=== PATIENT | male | born 1985 | race Caucasian/White ===

== ENCOUNTER 2017-04-03 22:52 | Emergency (ER) | payer OTHER ==
[2017-04-03] MEDS ORDERED: SILVER SULFADIAZINE 1 % 25 GM TUBE TOP ONE ×2 (23:02→23:06)
[2017-04-03] MEDS ORDERED: HYDROCOD/APAP 10/325 (ER DISP) # 3 tablets PO ONE (23:05)
[2017-04-03] MEDS ORDERED: KETOROLAC TROMETHAMINE INJ 30 MG/ML VIAL IM ONE (23:05)
[2017-04-03] MEDS ORDERED: HYDROmorphone HCL INJ 2 MG/ML VIAL IM ONE (23:05)
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
[2017-04-03 23:13] VITALS: BP 117/52; TEMP 97.8; O2SAT 98
== END 2017-04-03 23:31 | disposition home or self-care (01) ==
LOC: ER 22:52
DX: T23.262A Burn of second degree of back of left hand, initial encounter (principal); T23.261A Burn of second degree of back of right hand, initial encounter; I49.9 Cardiac arrhythmia, unspecified; Z87.891 Personal history of nicotine dependence; X08.8XXA Exposure to other specified smoke, fire and flames, initial encounter; Y92.9 Unspecified place or not applicable
CPT/HCPCS: J1170; J1885

== ENCOUNTER 2019-03-25 20:13 | Emergency (ER) | payer SELFPAY ==
[2019-03-25] MEDS ORDERED: LIDOCAINE HCL 2% (MOUTH-THROAT) 15 ML UD ONE (20:35)
[2019-03-25] MEDS ORDERED: KETOROLAC TROMETHAMINE 10 MG TAB PO ONE (21:16)
[2019-03-25 21:19] VITALS: BP 132/92; TEMP 98.6; O2SAT 98
[2019-03-25] MEDS: KETOROLAC TROMETHAMINE 10 MG TAB PO ONE (21:24)
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
[2019-03-25] MEDS: TETANUS,DIPHTHERIA,PERTUSSIS 1 EA SYG IM ONE (21:30)
[2019-03-25] MEDS: AMOXICILLIN & POT CLAVULANATE 875 MG TAB PO ONE (21:38)
== END 2019-03-25 21:46 | disposition home or self-care (01) ==
LOC: ER 20:13
DX: S01.511A Laceration without foreign body of lip, initial encounter (principal); Y04.0XXA Assault by unarmed brawl or fight, initial encounter; Z87.891 Personal history of nicotine dependence; Y92.9 Unspecified place or not applicable